=== PATIENT | male | born 1960 | race Caucasian/White ===

== ENCOUNTER 2019-04-03 19:46 | Emergency (ER) | payer OTHER ==
[~2019-04-03] VITALS: Ht 185.4 cm; Wt 82.5 kg
[~2019-04-03 19:46] MED LIST: LAMOTRIGINE150 MG; NORCO 5-325 TA1 EACH PO; PHENERGAN25 MG/1 M1 PO; QUETIAPINE FUMA25 MG
[2019-04-03] MEDS ORDERED: CYCLOBENZAPRINE5 MG PO (19:59)
[2019-04-03] MEDS ORDERED: MELOXICAM7.5 MG PO (19:59)
== END 2019-04-03 21:07 | disposition home or self-care (01) ==
LOC: ED 19:46
DX: S61.213A Laceration without foreign body of left middle finger without damage to nail, initial encounter (principal); W26.0XXA Contact with knife, initial encounter; F31.9 Bipolar disorder, unspecified; Z79.899 Other long term (current) drug therapy
CPT/HCPCS: 90471; 90715; 99282-25